=== PATIENT | male | born 1985 | race Caucasian/White ===

== ENCOUNTER 2017-07-21 21:31 | Emergency (ER) | payer OTHER ==
[~2017-07-21] VITALS: Ht 185.4 cm; Wt 109.1 kg
[2017-07-21 21:34] VITALS: BP 148/86; TEMP 97.9
[2017-07-21] MEDS ORDERED: SEROQUEL 1100 MG/TAB PO (21:37)
[2017-07-21] MEDS ORDERED: XANAX XR1 M1 PO (21:37)
[2017-07-21 22:42] VITALS: PULSE 74
== END 2017-07-21 22:42 | disposition home or self-care (01) ==
LOC: COL.ER 21:31
DX: F41.9 Anxiety disorder, unspecified (principal)